=== PATIENT | female | born 1995 | race American Indian/Alaskan Native ===

== ENCOUNTER 2018-06-05 14:34 | Emergency (ER) | payer MEDICAID, OTHER ==
--- NOTE | 2018-06-05 14:42 | Emergency Department Report ---
Blank Doc - Documentation Documentation: This is a 22-year-old female that presents with pelvic and lower back cramping intermittent for 2 months. Denies any vaginal bleeding or discharge. This initial assessment/diagnostic orders/clinical plan/treatment(s) is/are subject to change based on patient's health status, clinical progression and re- assessment by fellow clinical providers in the ED. Further treatment and workup at subsequent clinical providers discretion. Patient/guardians urged not to elope from the ED as their condition may be serious if not clinically assessed and managed. Initial orders include: 1- Patient sent to [facility] for further evaluation and treatment 2- UA 3- labs
[2018-06-05 14:48] VITALS: BP 124/77
[2018-06-05 15:04] LABS: Basophils % (Auto) 0.2 % (0.0-1.8); Eosinophils % (Auto) 0.6 % (0.0-4.3); Hematocrit 34.3 % (30.3-42.9); Hemoglobin 11.4 gm/dl (10.1-14.3); Lymphocytes # (Auto) 1.7 K/mm3 (1.2-5.4); Lymphocytes % (Auto) 28.5 % (13.4-35.0); Mean Corpuscular HGB Conc 33 % (30-34); Mean Corpuscular Volume 77 fl (79-97); Monocytes # (Auto) 0.3 K/mm3 (0.0-0.8); Monocytes % (Auto) 5.4 % (0.0-7.3); Platelet Count 221 K/mm3 (140-440); Red Blood Count 4.43 M/mm3 (3.65-5.03); Red Cell Distribution Width 15.6 % (13.2-15.2)
[2018-06-05 15:33] LABS: BUN/Creatinine Ratio 13; Blood Urea Nitrogen 8 mg/dL (7-17); Calcium 9.3 mg/dL (8.4-10.2); Hemolysis Index 1
--- NOTE | 2018-06-05 15:54 | Emergency Department Report ---
ED Abdominal Pain HPI - General Chief Complaint: Abdominal Pain Stated Complaint: BAD CRAMPS/MIGRAINES/BACK PAIN Time Seen by Provider: 06/05/18 14:41 Source: patient Mode of arrival: Ambulatory Limitations: No Limitations - History of Present Illness MD Complaint: abdominal pain -: month(s) (2) Location: diffuse Radiation: none Migration to: no migration Severity scale (0 -10): 9 Quality: cramping Consistency: intermittent Associated Symptoms: denies other symptoms - Related Data Previous Rx's Medication Instructions Recorded Last Taken Type Ibuprofen [Motrin 800 MG tab] 800 mg PO TID #30 tablet 01/05/13 Unknown Rx Acetaminophen/Codeine 1 tab PO Q6H PRN #12 tab 03/04/14 Unknown Rx [Acetaminophen-Codeine #3 TAB] Ibuprofen [Motrin] 600 mg PO Q8H PRN #30 tablet 03/04/14 Unknown Rx Sulfamethoxazole/Trimethoprim 1 each PO BID #20 tablet 03/04/14 Unknown Rx [Bactrim Ds] Allergies Allergy/AdvReac Type Severity Reaction Status Date / Time No Known Allergies Allergy Verified 06/05/18 14:36 ED Review of Systems ROS: Stated complaint: BAD CRAMPS/MIGRAINES/BACK PAIN Other details as noted in HPI Comment: All other systems reviewed and negative Constitutional: denies: chills, fever Respiratory: denies: cough, orthopnea Cardiovascular: denies: chest pain, palpitations, dyspnea on exertion Gastrointestinal: abdominal pain. denies: nausea, vomiting, diarrhea, constipation, hematemesis, melena, hematochezia Musculoskeletal: denies: back pain Neurological: headache. denies: weakness, numbness, paresthesias, confusion, abnormal gait ED Past Medical Hx - Past Medical History Hx Asthma: Yes Additional medical history: Broken right arm - Surgical History Additional Surgical History: hernia removal - Social History Smoking Status: Never Smoker Substance Use Type: None - Medications Home Medications: Home Medications Medication Instructions Recorded Confirmed Last Taken Type Ibuprofen [Motrin 800 MG tab] 800 mg PO TID #30 tablet 01/05/13 Unknown Rx Acetaminophen/Codeine 1 tab PO Q6H PRN #12 tab 03/04/14 Unknown Rx [Acetaminophen-Codeine #3 TAB] Ibuprofen [Motrin] 600 mg PO Q8H PRN #30 tablet 03/04/14 Unknown Rx Sulfamethoxazole/Trimethoprim 1 each PO BID #20 tablet 12/07/14 Unknown Rx [Bactrim Ds] ED Physical Exam - General Limitations: No Limitations General appearance: alert, in no apparent distress - Head Head exam: Present: atraumatic, normocephalic, normal inspection - Eye Eye exam: Present: normal appearance, PERRL - ENT ENT exam: Present: normal exam, normal orophraynx, mucous membranes moist - Neck Neck exam: Present: normal inspection, full ROM. Absent: tenderness, meningismus, lymphadenopathy, thyromegaly - Respiratory Respiratory exam: Present: normal lung sounds bilaterally - Cardiovascular Cardiovascular Exam: Present: regular rate, normal rhythm, normal heart sounds - GI/Abdominal GI/Abdominal exam: Present: soft, normal bowel sounds. Absent: distended, t enderness, guarding, rebound, rigid, organomegaly, mass, bruit, pulsatile mass, hernia - Extremities Exam Extremities exam: Present: normal inspection, full ROM, normal capillary refill. Absent: pedal edema, calf tenderness - Back Exam Back exam: Present: normal inspection, full ROM. Absent: tenderness, CVA tenderness (R), CVA tenderness (L), muscle spasm, paraspinal tenderness, vertebral tenderness, rash noted - Neurological Exam Neurological exam: Present: alert, oriented X3, CN II-XII intact, normal gait, reflexes normal - Psychiatric Psychiatric exam: Present: normal mood - Skin Skin exam: Present: warm, intact, normal color ED Course Vital Signs 06/05/18 14:47 Temperature 99.1 F Pulse Rate 89 Respiratory 18 Rate Blood Pressure 124/77 O2 Sat by Pulse 100 Oximetry ED Medical Decision Making - Lab Data Result diagrams: 06/05/18 14:52 06/05/18 14:52 Critical care attestation.: If time is entered above; I have spent that time in minutes in the direct care of this critically ill patient, excluding procedure time. ED Disposition Clinical Impression: Abdominal pain, UTI (urinary tract infection) Disposition: TO HOME OR SELFCARE Is pt being admited?: No Condition: Stable Instructions: Abdominal Pain (ED), Urinary Tract Infection in Women (ED) Referrals: SITA MOSS MD [Primary Care Provider] - 3-5 Days
[2018-06-05 16:35] LABS: Bilirubin,Urine NEG (Negative); Blood,Urine NEG (Negative); Color,Urine Yellow (Yellow); Mucus,Urine FEW /HPF; Protein,Urine <15 mg/dL mg/dL (Negative); Urobilinogen,Urine < 2.0 mg/dL (<2.0)
[2018-06-05 16:37] LABS: HCG Qualitative,Urine Negative (Negative)
== END 2018-06-05 16:57 | disposition home or self-care (01) ==
LOC: ED 14:34
DX: N39.0 Urinary tract infection, site not specified (principal); J45.909 Unspecified asthma, uncomplicated
CPT/HCPCS: 36415; 80048; 81001; 81025; 85025; 99283

== ENCOUNTER 2018-11-12 19:24 | Emergency (ER) | payer MEDICAID, OTHER ==
[2018-11-12 19:58] VITALS: BP 111/75
--- NOTE | 2018-11-12 20:03 | Event Note ---
ED Screening Note Date of service: 11/12/18 Time: 20:01 ED Screening Note: 23 y/o female comes in for abd pain and having nausea. She is concern for enlarge thyroid that was told to her by a [employer]NAGER [employer] at her job. This initial assessment/diagnostic orders/clinical plan/treatment(s) is/are subject to change based on patients health status, clinical progression and re- assessment by fellow clinical providers in the ED. Further treatment and workup at subsequent clinical providers discretion. Patient/guardian urged not to elope from the ED as their condition may be serious if not clinically assessed and managed. Initial orders include:
[2018-11-12 20:25] LABS: Basophils % (Auto) 0.3 % (0.0-1.8); Eosinophils # (Auto) 0.2 K/mm3 (0.0-0.4); Eosinophils % (Auto) 3.9 % (0.0-4.3); Hematocrit 33.2 % (30.3-42.9); Hemoglobin 11.4 gm/dl (10.1-14.3); Lymphocytes # (Auto) 1.5 K/mm3 (1.2-5.4); Lymphocytes % (Auto) 26.1 % (13.4-35.0); Mean Corpuscular HGB Conc 34 % (30-34); Mean Corpuscular Volume 79 fl (79-97); Monocytes # (Auto) 0.5 K/mm3 (0.0-0.8); Monocytes % (Auto) 8.2 % (0.0-7.3); Platelet Count 216 K/mm3 (140-440); Red Blood Count 4.22 M/mm3 (3.65-5.03); Red Cell Distribution Width 14.4 % (13.2-15.2)
[2018-11-12 20:47] LABS: Albumin 4.3 g/dL (3.9-5); BUN/Creatinine Ratio 7; Blood Urea Nitrogen 5 mg/dL (7-17); Hemolysis Index 4
[2018-11-12 20:50] LABS: Bilirubin,Urine NEG (Negative); Blood,Urine NEG (Negative); Color,Urine Amber (Yellow); Mucus,Urine 2+ /HPF
[2018-11-12 20:54] LABS: Alanine Aminotransferase < 5 units/L (7-56)
[2018-11-12] MEDS ORDERED: XYLOCAINE 1% MPF 5 mL INFILTRATI ONE (22:11)
[2018-11-12] MEDS ORDERED: ROCEPHIN IM ONE (22:11)
--- NOTE | 2018-11-12 23:04 | Emergency Department Report ---
ED Abdominal Pain HPI - General Chief Complaint: Abdominal Pain Stated Complaint: ABD PAIN,SWOLLEN THYROID GLAND Time Seen by Provider: 11/12/18 19:59 Source: patient Mode of arrival: Ambulatory Limitations: No Limitations - History of Present Illness Initial Comments: Patient is a 23-year-old female presents to emergency room with complaints of lower abdominal pain that began a month ago. she has associated urinary frequency and nausea. She denies any fever, vomiting, diarrhea. She does not report any vaginal discharge or vaginal complaints. The patient states the nurse practitioner at her job told her "thyroid looked enlarged." She has not seen a primary care doctor to have a thyroid panel. she denies any past medical history or allergies to medications. States her last menstrual cycle was November 04. She states she had 2 menstrual cycles in October. - Related Data Previous Rx's Medication Instructions Recorded Last Taken Type Ibuprofen [Motrin 800 MG tab] 800 mg PO TID #30 tablet 01/05/13 Unknown Rx Acetaminophen/Codeine 1 tab PO Q6H PRN #12 tab 03/04/14 Unknown Rx [Acetaminophen-Codeine #3 TAB] Ibuprofen [Motrin] 600 mg PO Q8H PRN #30 tablet 03/04/14 Unknown Rx Sulfamethoxazole/Trimethoprim 1 each PO BID #20 tablet 03/04/14 Unknown Rx [Bactrim Ds] Naproxen [Naprosyn] 500 mg PO BID #14 tablet 06/05/18 Unknown Rx Nitrofurantoin Hill/M-Cryst 100 mg PO Q12HR #14 capsule 06/05/18 Unknown Rx [Macrobid CAP] Ondansetron [Zofran ODT TAB] 4 mg PO Q8HR PRN #14 tab.rapdis 11/12/18 Unknown Rx Phenazopyridine [Pyridium] 200 mg PO BID PRN #14 tab 11/12/18 Unknown Rx cephALEXin [Keflex] 500 mg PO BID 7 Days #14 cap 11/12/18 Unknown Rx Allergies Allergy/AdvReac Type Severity Reaction Status Date / Time No Known Allergies Allergy Verified 06/05/18 14:36 ED Review of Systems ROS: Stated complaint: ABD PAIN,SWOLLEN THYROID GLAND Other details as noted in HPI Comment: All other systems reviewed and negative ED Past Medical Hx - Past Medical History Hx Asthma: Yes Additional medical history: Broken right arm - Surgical History Additional Surgical History: hernia removal - Social History Smoking Status: Never Smoker Substance Use Type: None - Medications Home Medications: Home Medications Medication Instructions Recorded Confirmed Last Taken Type Ibuprofen [Motrin 800 MG tab] 800 mg PO TID #30 tablet 01/05/13 Unknown Rx Acetaminophen/Codeine 1 tab PO Q6H PRN #12 tab 03/04/14 Unknown Rx [Acetaminophen-Codeine #3 TAB] Ibuprofen [Motrin] 600 mg PO Q8H PRN #30 tablet 03/04/14 Unknown Rx Sulfamethoxazole/Trimethoprim 1 each PO BID #20 tablet 03/04/14 Unknown Rx [Bactrim Ds] Naproxen [Naprosyn] 500 mg PO BID #14 tablet 06/05/18 Unknown Rx Nitrofurantoin Hill/M-Cryst 100 mg PO Q12HR #14 capsule 06/05/18 Unknown Rx [Macrobid CAP] Ondansetron [Zofran ODT TAB] 4 mg PO Q8HR PRN #14 tab.rapdis 11/12/18 Unknown Rx Phenazopyridine [Pyridium] 200 mg PO BID PRN #14 tab 11/12/18 Unknown Rx cephALEXin [Keflex] 500 mg PO BID 7 Days #14 cap 11/12/18 Unknown Rx ED Physical Exam - General Limitations: No Limitations General appearance: alert, in no apparent distress - Head Head exam: Present: atraumatic, normocephalic - Eye Eye exam: Present: normal appearance - ENT ENT exam: Present: mucous membranes moist - Neck Neck exam: Present: other (no palpable thyroid nodules, no goiter present, no speaking difficulty, no swallowing difficulty, equal rise with swallowing). Absent: lymphadenopathy - Respiratory Respiratory exam: Present: normal lung sounds bilaterally. Absent: respiratory distress, wheezes, rales, rhonchi, stridor, chest wall tenderness, accessory muscle use, decreased breath sounds, prolonged expiratory - Cardiovascular Cardiovascular Exam: Present: regular rate, normal rhythm, normal heart sounds. Absent: systolic murmur, diastolic murmur, rubs, gallop - GI/Abdominal GI/Abdominal exam: Present: soft, normal bowel sounds. Absent: distended, tenderness, guarding, rebound, rigid - Back Exam Back exam: Absent: CVA tenderness (R), CVA tenderness (L) - Neurological Exam Neurological exam: Present: alert, oriented X3 - Psychiatric Psychiatric exam: Present: normal affect, normal mood - Skin Skin exam: Present: warm, dry, intact ED Course Vital Signs 11/12/18 11/12/18 19:57 23:45 Temperature 98.5 F Pulse Rate 104 H 91 H Respiratory 14 16 Rate Blood Pressure 111/75 O2 Sat by Pulse 100 99 Oximetry ED Medical Decision Making - Lab Data Result diagrams: 11/12/18 20:13 11/12/18 20:13 Lab Results 11/12/18 11/12/18 11/12/18 Range/Units 20:13 20:13 20:13 WBC 5.9 (4.5-11.0) K/mm3 RBC 4.22 (3.65-5.03) M/mm3 Hgb 11.4 (10.1-14.3) gm/dl Hct 33.2 (30.3-42.9) % MCV 79 (79-97) fl MCH 27 L (28-32) pg MCHC 34 (30-34) % RDW 14.4 (13.2-15.2) % Plt Count 216 (140-440) K/mm3 Lymph % (Auto) 26.1 (13.4-35.0) % Hill % (Auto) 8.2 H (0.0-7.3) % Eos % (Auto) 3.9 (0.0-4.3) % Baso % (Auto) 0.3 (0.0-1.8) % Lymph # 1.5 (1.2-5.4) K/mm3 Hill # 0.5 (0.0-0.8) K/mm3 Eos # 0.2 (0.0-0.4) K/mm3 Baso # 0.0 (0.0-0.1) K/mm3 Seg Neutrophils % 61.5 (40.0-70.0) % Seg Neutrophils # 3.6 (1.8-7.7) K/mm3 Sodium 140 (137-145) mmol/L Potassium 3.0 L (3.6-5.0) mmol/L Chloride 103.2 (98-107) mmol/L Carbon Dioxide 25 (22-30) mmol/L Anion Gap 15 mmol/L BUN 5 L (7-17) mg/dL Creatinine 0.7 (0.7-1.2) mg/dL Estimated GFR > 60 ml/min BUN/Creatinine Ratio 7 % Glucose 88 (65-100) mg/dL Calcium 9.0 (8.4-10.2) mg/dL Total Bilirubin 0.40 (0.1-1.2) mg/dL AST 11 (5-40) units/L ALT < 5 L (7-56) units/L Alkaline Phosphatase 56 (35-129) units/L Total Protein 7.5 (6.3-8.2) g/dL Albumin 4.3 (3.9-5) g/dL Albumin/Globulin Ratio 1.3 % Lipase 8 L (13-60) units/L TSH (0.270-4.200) mlU/mL HCG, Qual Negative (Negative) Urine Color (Yellow) Urine Turbidity (Clear) Urine pH (5.0-7.0) Ur Specific [place] (1.003-1.030) Urine Protein (Negative) mg/dL Urine Glucose (UA) (Negative) mg/dL Urine Ketones (Negative) mg/dL Urine Blood (Negative) Urine Nitrite (Negative) Urine Bilirubin (Negative) Urine Urobilinogen (<2.0) mg/dL Ur Leukocyte Esterase (Negative) Urine WBC (Auto) (0.0-6.0) /HPF Urine RBC (Auto) (0.0-6.0) /HPF U Epithel Cells (Auto) (0-13.0) /HPF Ur Transition Epith Cell /HPF Urine Mucus /HPF 11/12/18 11/12/18 Range/Units 20:16 22:29 WBC (4.5-11.0) K/mm3 RBC (3.65-5.03) M/mm3 Hgb (10.1-14.3) gm/dl Hct (30.3-42.9) % MCV (79-97) fl MCH (28-32) pg MCHC (30-34) % RDW (13.2-15.2) % Plt Count (140-440) K/mm3 Lymph % (Auto) (13.4-35.0) % Hill % (Auto) (0.0-7.3) % Eos % (Auto) (0.0-4.3) % Baso % (Auto) (0.0-1.8) % Lymph # (1.2-5.4) K/mm3 Hill # (0.0-0.8) K/mm3 Eos # (0.0-0.4) K/mm3 Baso # (0.0-0.1) K/mm3 Seg Neutrophils % (40.0-70.0) % Seg Neutrophils # (1.8-7.7) K/mm3 Sodium (137-145) mmol/L Potassium (3.6-5.0) mmol/L Chloride (98-107) mmol/L Carbon Dioxide (22-30) mmol/L Anion Gap mmol/L BUN (7-17) mg/dL Creatinine (0.7-1.2) mg/dL Estimated GFR ml/min BUN/Creatinine Ratio % Glucose (65-100) mg/dL Calcium (8.4-10.2) mg/dL Total Bilirubin (0.1-1.2) mg/dL AST (5-40) units/L ALT (7-56) units/L Alkaline Phosphatase (35-129) units/L Total Protein (6.3-8.2) g/dL Albumin (3.9-5) g/dL Albumin/Globulin Ratio % Lipase (13-60) units/L TSH 0.841 (0.270-4.200) mlU/mL HCG, Qual (Negative) Urine Color [place] (Yellow) Urine Turbidity Cloudy (Clear) Urine pH 7.0 (5.0-7.0) Ur Specific [place] 1.023 (1.003-1.030) Urine Protein 100 mg/dl (Negative) mg/dL Urine Glucose (UA) Neg (Negative) mg/dL Urine Ketones Tr (Negative) mg/dL Urine Blood Neg (Negative) Urine Nitrite Neg (Negative) Urine Bilirubin Neg (Negative) Urine Urobilinogen 2.0 (<2.0) mg/dL Ur Leukocyte Esterase Mod (Negative) Urine WBC (Auto) 68.0 H (0.0-6.0) /HPF Urine RBC (Auto) 4.0 (0.0-6.0) /HPF U Epithel Cells (Auto) 8.0 (0-13.0) /HPF Ur Transition Epith Cell 1 /HPF Urine Mucus 2+ /HPF - Medical Decision Making Patient is a 23-year-old female presents to emergency room with complaints of lower abdominal pain that began a month ago. she has associated urinary frequency and nausea. She denies any fever, vomiting, diarrhea. She does not report any vaginal discharge or vaginal complaints. The patient states the [facility] practitioner at her job told her "thyroid looked enlarged." She has not seen a primary care doctor to have a thyroid panel. she denies any past medical history or allergies to medications. States her last menstrual cycle was November 04. She states she had 2 menstrual cycles in October. vitals are stable. no abd tenderness on exam, no palpable thyroid nodules, no goiter present, no speaking difficulty, no swallowing difficulty, equal rise with swallowing. labs are stable, hypokalemia on labs advised to increased potassium intake and discussed the items she could eat to increase, TSH is normal, UA shows evidence of UTI. pt given prescription for keflex, pyridium, and zofran. advised pt to take medication as prescribed. drink plenty of fluids. Follow up with a primary care doctor and [facility] in the next 2-3 days. Return to the emergency room for any new or worsening symptoms. Critical care attestation.: If time is entered above; I have spent that time in minutes in the direct care of this critically ill patient, excluding procedure time. ED Disposition Clinical Impression: Lower abdominal pain UTI (urinary tract infection) Qualifiers: Urinary tract infection type: acute cystitis Hematuria presence: without hematuria Qualified Code(s): N30.00 - Acute cystitis without hematuria Disposition: TO HOME OR SELFCARE Is pt being admited?: No Does the pt Need Aspirin: No Condition: Stable Instructions: Urinary Tract Infection in Women (ED) Additional Instructions: take medication as prescribed. drink plenty of fluids. Follow up with a primary care doctor and [facility] in the next 2-3 days. Return to the emergency room for any new or worsening symptoms. Prescriptions: cephALEXin [Keflex] 500 mg PO BID 7 Days #14 cap Phenazopyridine [Pyridium] 200 mg PO BID PRN #14 tab PRN Reason: pain Ondansetron [Zofran ODT TAB] 4 mg PO Q8HR PRN #14 tab.rapdis PRN Reason: Nausea And Vomiting Referrals: [facility] [Provider Group] - 2-3 Days [facility] [Provider Group] - 2-3 Days [facility] [Outside] - 2-3 Days [facility] [Outside] - 2-3 Days Time of Disposition: 23:39 Print Language: BELARUSIAN
== END 2018-11-13 00:26 | disposition home or self-care (01) ==
LOC: ED 19:24
DX: N39.0 Urinary tract infection, site not specified (principal); J45.909 Unspecified asthma, uncomplicated; Z79.1 Long term (current) use of non-steroidal anti-inflammatories (NSAID); Z79.899 Other long term (current) drug therapy
CPT/HCPCS: 36415; 80053; 81001; 83690; 84443; 84703; 85025; 87086; 96372; 99283; J0696